=== PATIENT | female | born 1990 | race Hispanic/Latino ===

== ENCOUNTER 2018-04-04 13:16 | Emergency (ER) | payer OTHER ==
[2018-04-04 13:17] VITALS: BMI 24.5
[2018-04-04 13:25] VITALS: BP 116/76; PULSE 96; RESP 18; TEMP 98.6; O2SAT 98
[2018-04-04] MEDS ORDERED: Oxycodone/Acetaminophen 5/325 mg Tab PO STA (14:23)
--- NOTE | 2018-04-04 14:26 | C.PDOC ---
History Of Present Illness 27 y/o female c/o right lower mouth pain and right sided facial swelling s/p wisdom tooth removal yesterday. pt has been taking antibiotic, ibuprofen and tylenol #3 with no relief. no fever. unable to see her oral surgeon until th. Time Seen by Provider: 04/04/18 13:39 Chief Complaint (Nursing): Dental Pain History Per: Patient History/Exam Limitations: no limitations Onset/Duration Of Symptoms: Days Past Medical History Reviewed: Historical Data, Nursing Documentation, Vital Signs Vital Signs: Last Vital Signs Temp 98.6 F 04/04/18 13:21 Pulse 96 H 04/04/18 13:21 Resp 18 04/04/18 13:21 BP 116/76 04/04/18 13:21 Pulse Ox 98 04/04/18 15:00 - Medical History PMH: Depression Denies: Diabetes, Hepatitis, HIV, HTN, Seizures, Sexually Transmitted Disease Surgical History: No Surg Hx - [facility] Procedures INJECT/INFUSE NEC (05/26/14) PSYCHIA INTERV/EVAL NEC (06/30/14) TETANUS TOXOID ADMINIST (03/04/14) VENOUS PUNCTURE NEC (03/24/14) Family History: States: No Known Family Hx - Social History Hx Tobacco Use: (pt denies ) Hx Alcohol Use: Yes (pt does not answer) Hx Substance Use: No (pt states she does not know ) - Immunization History Hx Tetanus Toxoid Vaccination: (UNK) Hx Influenza Vaccination: (UNK) Hx Pneumococcal Vaccination: (UNK) Review Of Systems Constitutional: Negative for: Fever, Chills ENT: Positive for: Other (right sided facial swelling). Negative for: Throat Swelling Cardiovascular: Negative for: Chest Pain Respiratory: Negative for: Shortness of Breath Physical Exam - Physical Exam Appears: Non-toxic Skin: Warm, Dry Head: Atraumatic, Normacephalic, Swelling (swollen and tender right cheek), Other (decreased ROM of jaw due to pain) Eye(s): bilateral: Normal Inspection Ear(s): Bilateral: Normal Nose: Normal Oral Mucosa: Moist Tongue: Normal Appearing, No Swelling Gingiva: No Swelling Throat: Normal Neck: Normal ROM, Supple ED Course And Treatment O2 Sat by Pulse Oximetry: 98 (RA) Pulse Ox Interpretation: Normal Medical Decision Making Medical Decision Making: pt reports maked decrease in pans s/o cold compress, toradol and percocet, will d/.c home, f/u oral surgeon on Disposition Counseled Patient/Family Regarding: Diagnosis, Need For Followup - Disposition Disposition: HOME/ ROUTINE Disposition Time: 14:56 Condition: IMPROVED Additional Instructions: Please use cold compresses (not directly on skin) every 2-3 hours. Continue taking medication for pain- 600 mg of ibuprofen (with food) every 6 hours, not 2 at a time. and Tylenol with codeine and antibiotics as prescribed. Follow up with your oral surgeon on . Instructions: Tooth Extraction (DC) Forms: [email or web address] ([place]z), General Discharge Instructions - Clinical Impression Clinical Impression: S/P wisdom tooth extraction, Pain, dental
[2018-04-04] MEDS ORDERED: Oxycodone/Acetaminophen 5/325 mg Tab ONE (14:27)
== END 2018-04-04 15:22 | disposition home or self-care (01) ==
LOC: C.ER 13:16
DX: K08.89 Other specified disorders of teeth and supporting structures (principal); K08.409 Partial loss of teeth, unspecified cause, unspecified class
CPT/HCPCS: 96372; 99283; J1885